=== PATIENT | female | born 1990 | race Caucasian/White ===

== ENCOUNTER 2017-09-17 05:31 | Inpatient (IN) | payer BC ==
[~2017-09-17] VITALS: Ht 170.2 cm; Wt 118.0 kg
[~2017-09-17 05:31] MED LIST: IBUP600 PO; OXYC1SOL5 PO; PERI8.6T PO; PRENCAP6 PO
[2017-09-17 06:12] LABS: AUTOMATED NEUTROPHIL # 8.2 TH/MM3 (1.8-7.7); BASOPHIL % 0.3 % (0.0-2.0); EOSINOPHIL # 0.2 TH/MM3 (0-0.4); EOSINOPHIL % 1.5 % (0.0-4.0); HEMATOCRIT 42.1 % (35.0-46.0); HEMOGLOBIN 14.1 GM/DL (11.6-15.3); LYMPH % 16.8 % (9.0-44.0); LYMPHOCYTE # 1.9 TH/MM3 (1.0-4.8); MEAN CELL VOLUME 90.3 FL (80.0-100.0); MEAN CORPUSCULAR HEMOGLOBIN 30.2 PG (27.0-34.0); MEAN CORPUSCULAR HGB CONC 33.4 % (32.0-36.0); MEAN PLATELET VOLUME 8.9 FL (7.0-11.0); MONO % 7.9 % (0.0-8.0); MONOCYTE # 0.9 TH/MM3 (0-0.9); NEUT % 73.5 % (16.0-70.0); PLATELET COUNT 169 TH/MM3 (150-450); RED BLOOD COUNT 4.67 MIL/MM3 (4.00-5.30); RED CELL DISTRIBUTION WIDTH 13.7 % (11.6-17.2); WHITE BLOOD COUNT 11.2 TH/MM3 (4.0-11.0)
[2017-09-17] MEDS ORDERED: ceFAZolin 2 GM PREMIX 50 ML IV SCH (06:15)
[2017-09-17] MEDS ORDERED: CITRIC ACID-SODIUM CITRATE LIQ 30 ML UDC PO SCH (06:15)
[2017-09-17] MEDS ORDERED: LACTATED RINGER'S 1000 ML IV SCH (06:15)
[2017-09-17] MEDS ORDERED: LACTATED RINGER'S 1000 ML IV ONE (06:15)
[2017-09-17 06:16] LABS: AMORPHOUS SEDIMENT, URINE RARE; BACTERIA, URINE RARE /hpf; BILIRUBIN, URINE NEG (NEG); BLOOD, URINE NEG (NEG); GLUCOSE,URINE NEG (NEG); KETONE, URINE 10 mg/dL (NEG); MUCUS URINE FEW /lpf (OCC); NITRITE,URINE NEG (NEG); PH, URINE 6.5 (5.0-8.5); SQUAMOUS EPITHELIAL CELL URINE 34 /hpf (0-5); URINE COLOR YELLOW (YELLW/STRAW); URINE LEUKOCYTE ESTERASE LARGE (NEG)
[2017-09-17] MEDS ORDERED: METOCLOPRAMIDE HCL 10 MG/2 ML VIAL ONE (07:20)
[2017-09-17] MEDS ORDERED: MORPHINE SULFATE PF 5 MG/10 ML VIAL ONE (07:20)
[2017-09-17] MEDS ORDERED: ACETAMINOPHEN 1000 MG/100 ML 100 ML IV ONE ×2 (07:20→08:30)
--- NOTE | 2017-09-17 07:25 | HHI.HP ---
HPI Chief Complaint scheduled repeat delivery at term Date Seen: September 17, 2017 Time Seen: 07:10 Travel History International Travel<30 Days: No Contact w/Intl Traveler<30Days: No Known Affected Area: No History of Present Illness HPI 27 yo with miranda IUP at 39 wks here for scheduled repeat due to history of , desired elective repeat. No complaint, denies regular contractions, pain minimal pelvic pressure 1/10, no VB, good movement. Declines tubal ligation. Weeks Gestation: 39 Para: 1 : 2 Miscarriage: 0 : 0 History Past Medical History Narrative Medical Rh negative (antibody negative) Obstetric History Obstetric History G1 = FT CD 04/2015 son "Shawanda" G2 = current Past Surgical History Narrative Surgical x 1 Family History Family History: Negative Social History Alcohol Use: No Tobacco Use: No Substance Abuse: No Allergies-Medications (Allergen,Severity, Reaction): Coded Allergies: No Known Allergies (Unverified , 10/24/15) Home Meds Reported Medications Mv & Min W/Fe Fumarat ( 1) 30 Mg-975 Mcg-200 Mg Cap, 1 CAP PO DAILY, CAP 10/24/15 Discontinued Scripts Sennosides-Docusate Sodium (Shonna-Colace 8.6-50 mg) 1 Tab Tab, 1 TAB PO BID for Constipation, #28 TAB 1 Refill Prov:Susan Baird MD 10/26/15 Oxycodone W/ Acetaminophen (Oxycodone/Acetaminophen 5-325 mg/5Ml) 5 mg/325 mg Tab, 1 TAB PO Q6H Y for PAIN, #30 TAB 0 Refills Prov:Susan Baird MD 10/26/15 Ibuprofen (Motrin 600 Mg Tab) 600 Mg Tab, 600 MG PO Q6H Y for CRAMPS, #30 TAB 1 Refill Prov:Susan Baird MD 10/26/15 Review of Systems General / Constitutional: Weight Gain, No: Fever, Chills, Other Eyes: No: Diploplia, Blurred Vision, Visual changes, Pain, Photophobia HENT: No: Headaches, Vertigo, Lightheadedness Cardiovascular: No: Irregular Rhythm, Chest Pain or Discomfort, Palpitations, Tachycardia, Syncope, Varicosities, Edema, Cyanosis Respiratory: No: Cough, Short of Breath, Other Gastrointestinal: No: Nausea, Vomiting, Diarrhea Genitourinary: Pelvic Pain (pressure), No: Decreased Urinary Output, Oliguria Musculoskeletal: No: Limited ROM, Weakness, Cramping, Edema, Pain Skin: No Rash, No Itching, No Dryness, No Lumps, No Change in Pigmentation, No Change in Nails, No Alopecia, No Lesions Neurologic: No: Weakness, Dizziness, Syncope, Focal Abnormalities, Coordination Problem, Headache, Slurred Speech, Seizures Psychiatric: No: Depression, Suicidal Ideations, Homicidal Ideation Endocrine: No: Heat Intolerance, Cold Intolerance, Polydipsia, Polyuria, Other Physical Exam Narrative GENERAL: Well-nourished, well-developed patient. Obese. SKIN: Warm and dry. HEAD: Normocephalic and atraumatic. EYES: No scleral icterus. No injection or drainage. ENT: No nasal drainage noted. Mucous membranes pink. Airway patent. NECK: Supple, trachea midline. No JVD. CARDIOVASCULAR: Regular rate and rhythm without murmurs, gallops, or rubs. RESPIRATORY: Breath sounds equal bilaterally. No accessory muscle use. BREASTS: deferred ABDOMEN/GI: Abdomen soft, non-tender, bowel sounds present, no rebound, no guarding Gravid to [39] weeks size Fundal Height: [39] GENITOURINARY: deferred FHT's: Category:I EXTREMITIES: No cyanosis or edema. BACK: Nontender without obvious deformity. No CVA tenderness. NEUROLOGICAL: Awake and alert. Motor and sensory grossly within normal limits. Five out of 5 muscle strength in all muscle groups. Normal speech. Caprini VTE Risk Assessment Caprini VTE Risk Assessment: No/Low Risk (score <= 1) VTE Pharm Contraindication: Epidural catheter Caprini Risk Assessment Model Point Value = 1 Point Value = 2 Point Value = 3 Point Value = 5 Age 41-60 Minor surgery BMI > 25 kg/m2 Swollen legs Varicose veins or History of unexplained or recurrent spontaneous Oral contraceptives or hormone replacement Sepsis (< 1 month) Serious lung disease, including pneumonia (< 1 month) Abnormal pulmonary function Acute myocardial infarction Congestive heart failure (< 1 month) History of inflammatory bowel disease Medical patient at bed rest Age 61-74 Arthroscopic surgery Major open surgery (> 45 min) Laparoscopic surgery (> 45 min) Malignancy Confined to bed (> 72 hours) Immobilizing plaster cast Central venous access Age >= 75 History of VTE Family history of VTE Factor V Leiden Prothrombin [id number] Lupus anticoagulant Anticardiolipin antibodies Elevated serum homocysteine Heparin-induced thrombocytopenia Other congenital or acquired thrombophilia Stroke (< 1 month) Elective arthroplasty Hip, pelvis, or leg fracture Acute spinal cord injury (< 1 month) Prophylaxis Regimen Total Risk Factor Score Risk Level Prophylaxis Regimen 0-1 Low Early ambulation 2 Moderate Order ONE of the following: *Sequential Compression Device (SCD) *Heparin 5000 units SQ BID 3-4 Higher Order ONE of the following medications: *Heparin 5000 units SQ TID *Enoxaparin/Lovenox 40 mg SQ daily (WT < 150 kg, CrCl > 30 mL/min) *Enoxaparin/Lovenox 30 mg SQ daily (WT < 150 kg, CrCl > 10-29 mL/min) *Enoxaparin/Lovenox 30 mg SQ BID (WT < 150 kg, CrCl > 30 mL/min) AND/OR *Sequential Compression Device (SCD) 5 or more Highest Order ONE of the following medications: *Heparin 5000 units SQ TID (Preferred with Epidurals) *Enoxaparin/Lovenox 40 mg SQ daily (WT < 150 kg, CrCl > 30 mL/min) *Enoxaparin/Lovenox 30 mg SQ daily (WT < 150 kg, CrCl > 10-29 mL/min) *Enoxaparin/Lovenox 30 mg SQ BID (WT < 150 kg, CrCl > 30 mL/min) AND *Sequential Compression Device (SCD) Data Data Vital Signs Reviewed: Yes Orders Orders Admit To Inpatient (09/17/17 ) Vital Signs (Adult) .ON ADMISSION (09/17/17 05:53) Activity Oob Ad Sneha (09/17/17 05:53) Heart (09/17/17 05:53) Urinary Catheter Management JUS.Q8H (09/17/17 05:53) ^ Preps (09/17/17 05:53) Scd / Андрей / Foot Pump JUS.QSHIFT (09/17/17 05:53) ^ Ultrasound For Locatio (09/17/17 05:53) Diet Npo (09/17/17 Breakfast) Type And Screen (09/17/17 05:53) Complete Blood Count With Diff (09/17/17 05:53) Urinalysis - C+S If Indicated (09/17/17 05:53) Drug Screen, Random Urine (09/17/17 05:53) Specimen To Be Collected PRN (09/17/17 05:53) Specimen To Be Collected PRN (09/17/17 05:53) Lactated Ringer's 1000 Ml Inj (Lr 1000 M (09/17/17 06:15) Lactated Ringer's 1000 Ml Inj (Lr 1000 M (09/17/17 06:15) Citric Acid-Sodium Citrate Liq (Bicitra (09/17/17 06:15) Cefazolin 2 Gm Premix (Ancef 2 Gm Premix (09/17/17 06:15) Urine Culture (09/17/17 05:45) Morphine Pf Inj (Duramorph Pf 0.5 Mg/Ml (09/17/17 07:20) Metoclopramide Inj (Reglan Inj) (09/17/17 07:20) Group B Strep: Negative Labs Laboratory Tests Test 09/17/17 05:45 09/17/17 06:00 Urine Color YELLOW Urine Turbidity HAZY Urine pH 6.5 Urine Specific [place] 1.020 Urine Protein TRACE Urine Glucose (UA) NEG Urine Ketones 10 Urine Occult Blood NEG Urine Nitrite NEG Urine Bilirubin NEG Urine Urobilinogen LESS THAN 2.0 Urine Leukocyte Esterase LARGE Urine RBC 1 Urine WBC 12 Urine Squamous Epithelial Cells 34 Urine Amorphous Sediment RARE Urine Bacteria RARE Urine Mucus FEW Microscopic Urinalysis Comment CULTURE INDICATED Urine Opiates Screen NEG Urine Barbiturates Screen NEG Urine Amphetamines Screen NEG Urine Benzodiazepines Screen NEG Urine Cocaine Screen NEG Urine Cannabinoids Screen NEG White Blood Count 11.2 Red Blood Count 4.67 Hemoglobin 14.1 Hematocrit 42.1 Mean Corpuscular Volume 90.3 Mean Corpuscular Hemoglobin 30.2 Mean Corpuscular Hemoglobin Concent 33.4 Red Cell Distribution Width 13.7 Platelet Count 169 Mean Platelet Volume 8.9 Neutrophils (%) (Auto) 73.5 Lymphocytes (%) (Auto) 16.8 Monocytes (%) (Auto) 7.9 Eosinophils (%) (Auto) 1.5 Basophils (%) (Auto) 0.3 Neutrophils # (Auto) 8.2 Lymphocytes # (Auto) 1.9 Monocytes # (Auto) 0.9 Eosinophils # (Auto) 0.2 Basophils # (Auto) 0.0 CBC Comment DIFF FINAL Differential Comment Date/Time Source Procedure Growth Status 09/17/17 05:45 Urine Clean Catch Urine Culture Pending Received Assessment/Plan Problem List: (1) History of delivery ICD Codes: Z98.891 - History of uterine scar from previous surgery Status: Chronic (2) Term ICD Codes: Z34.80 - Encounter for supervision of other normal , unspecified trimester Status: Acute Assessment and Plan 27 yo with miranda term , h/o CD for elective repeat at term 1) scheduled CD: r/b/a of procedure d/w pt, AQA, consents signed 2) GBS neg 3) Rh neg - s/p Rhogam at 28 wks, for PP eval 4) status: Cat I tracing, EFW 8.5Susan Shine MD September 17, 2017 07:25
--- NOTE | 2017-09-17 08:28 | PD.OB.DELI ---
Procedure Note Section Procedure Pre Op Diagnosis: (1) History of delivery (2) Term Post Op Diagnosis: (1) S/P repeat low transverse (2) History of delivery (3) Term Performed by Susan Baird Procedure: Repeat Low Transverse Sec Indication for delivery: Desired elective repeat Previous condition: None Informed consent obtained: For anesthesia, For procedure Confirmed correct: Patient, Procedure, Site, Time-out taken Anesthesia: Spinal Medication prior to procedure: As documented in eMAR Monitoring during procedure: Blood pressure monitoring, hospital monitor, Pulse oximetry Urinary catheter: Inserted using sterile technique, To dependent drainage, ml urine output (200) Sterile preparation: Duraprep, In usual fashion, With drapes to expose affected area Position: Supine with wedge to right side Operative Features Skin Incision: Pfannenstiel Uterine Incision: Low transverse w/knife / blunt ext Membranes Ruptured: Artificially, Amount of liquid (copious), Appearance of fluid (clear) Presentation: Vertex Delivery date: September 17, 2017 Delivery time: 07:51 Delivery of : Uneventful, Umbilical cord (loose nuchal reduced prior to delivery) : Female ("Nereida") One Minute : 9 Five Minute : 9 Weight: 8#14oz Status of : Viable, Cord blood, Nursery present Placenta delivered: Intact Medications: Antibiotics (ancef 2g IV preop) Estimated blood loss: 700 mL Procedure tolerated: Well Maternal Condition: Stable Condition: Stable Procedure in detail see dictated op note for full details Susan Baird MD September 17, 2017 08:28
[2017-09-17] MEDS ORDERED: oxyCODONE/ACETAMINOPHEN 5 MG/325 MG TAB PO PRN ×2 (08:30)
[2017-09-17] MEDS ORDERED: SIMETHICONE 80 MG CHEWABLE TAB PO PRN (08:30)
[2017-09-17] MEDS ORDERED: KETOROLAC TROMETHAMINE 60 MG/2 ML (IM) VIAL IM PRN (08:30)
[2017-09-17] MEDS ORDERED: OXYTOCIN 30 UNITS-500ML PREMIX 500 ML IV ONE (08:30)
[2017-09-17] MEDS ORDERED: SODIUM CHLORIDE 0.9% FLUSH 10 ML FLUSH IV FLUSH PRN (08:30)
[2017-09-17] MEDS ORDERED: ONDANSETRON ODT 4 MG TAB PO PRN (08:30)
[2017-09-17] MEDS ORDERED: OXYTOCIN 30 UNITS-500ML PREMIX 500 ML ONE (08:50)
[2017-09-17] MEDS ORDERED: SODIUM CHLORIDE 0.9% FLUSH 10 ML FLUSH IV FLUSH SCH (09:00)
--- NOTE | 2017-09-17 09:07 | MP ---
cc: Susan Baird MD DATE OF OPERATION: 09/17/2017 DATE OF PROCEDURE: 09/17/2017 PREOPERATIVE DIAGNOSES: 1. Term . 2. History of delivery, for elective repeat. POSTOPERATIVE DIAGNOSES: 1. Term . 2. History of delivery, for elective repeat. 3. Status post repeat low transverse delivery. INDICATIONS: Gayle Funez is a 27-year-old 2, now para 2-0-0-2, who was seen and evaluated throughout her with only complication of history of delivery for arrest of descent with first child. The patient desired elective repeat at term and as such she was scheduled. PROCEDURE PERFORMED: Repeat low transverse delivery. SURGEON: Susan Baird MD TYPE OF ANESTHESIA: Spinal. ESTIMATED BLOOD LOSS: 700 mL. IV FLUID REPLACEMENT: 2 liters. URINE OUTPUT: 200 mL of clear urine draining in the Sharma bag at the end of the procedure. COMPLICATIONS: None. COUNTS: The sponge, lap, instrument and needle counts are correct x2 at the conclusion of the procedure. PROPHYLAXIS: Ancef 2 grams IV was given preoperatively and SCDs were on and functioning throughout the entire case. SPECIMENS: None. INTRAOPERATIVE FINDINGS: Include a vigorous, viable female weighing 8 pounds, 14 ounces, Apgars of 9 and 9. Copious, clear amniotic fluid. Normal-appearing uterus, bilateral adnexa. Minimal scar tissue from prior . PROCEDURE IN DETAIL: After reviewing the informed consent, the patient was taken to the operating suite, where a timeout was performed to identify the patient, the planned procedure and any known allergies to drugs or drug products. The patient was then placed sitting up on the operating table and spinal anesthesia was administered without difficulty and found to be adequate. The patient was then gently lowered into dorsal supine position with a bump under her right side and abdomen and perineum were prepped and draped in normal sterile fashion. Sharma catheter was placed using sterile technique. Attention was turned abdominally where a Pfannenstiel type skin incision was made in the previous scar line from prior Pfannenstiel . The incision was carried down to the underlying layer of fascia with the Bovie. The fascia was incised in the midline. Incision was extended laterally with sharp dissection using Cook scissors. The fascia was elevated superiorly with Liat clamps and rectus muscles were dissected off sharply with Cook scissors. The Liat's were then moved to the inferior portion of the fascial incision and rectus muscles were dissected off sharply with Cook scissors. Rectus muscles were then in the midline. Peritoneum was identified and entered bluntly with surgeon's index finger. Incision was extended superiorly and inferiorly with good visualization of intraabdominal contents. Using smooth pickups and Metzenbaum scissors, a bladder flap was made. The bladder blade was then placed. Low transverse uterine incision was made with a scalpel, extended bluntly. Copious clear amniotic fluid was encountered. Infant's head was grasped and elevated out through the incision. A loose nuchal cord was encountered. This was reduced. With gentle maneuvering, the rest of the infant's body was readily delivered. Infant was immediately crying and vigorous upon delivery. Delayed cord clamping of 45 seconds was performed. The was then handed over to the awaiting nursery staff. Cord blood sample was taken. Using gentle fundal pressure and cord traction the placenta was delivered spontaneously. The uterus was then exteriorized, cleared of all clots and debris with sterile moist lap sponges. Hysterotomy was repaired in a double layer, first in a running locked layer, then an imbricating layer using #1 chromic. The posterior cul-de-sac was irrigated copiously with warm sterile saline. Uterus was returned to the abdomen. Additional irrigation with suction of the gutters was performed. Excellent hemostasis was noted at the repaired hysterotomy site and a layer of Interceed was placed over this area for adhesion barrier. Peritoneum was then closed in a running layer of 2-0 chromic. Fascia was closed in a running layer with #1 Vicryl. Subcutaneous tissue was irrigated copiously with warm sterile saline, and hemostasis was ensured with the Bovie. A series of interrupted sutures using 2-0 chromic was used to close the subcutaneous space. The skin was then closed in a subcuticular fashion using 3-0 Monocryl. The skin was cleaned and dried. Steri-Strips were placed as well as a standard dressing. Procedure concluded at this point. The patient tolerated the procedure well without complication. DISPOSITION: The patient's estimated length of stay is 2-3 postoperative days. is nursery status. MD KARLOS Toro , 08:32 AM , 09:05 AM [facility]
[2017-09-17] MEDS ORDERED: PHENYLEPH/NS 1000 MCG/10 ML SYR IV ONE (12:00)
[2017-09-17] MEDS ORDERED: DEXAMETHASONE SOD PHOS 4 MG/ML VIAL IV ONE (12:00)
[2017-09-17] MEDS ORDERED: OXYTOCIN 10 UNIT/ML AMP IV ONE (12:00)
[2017-09-17] MEDS ORDERED: LACTATED RINGER'S 1000 ML INJ 1,000 ML IV ONE (12:00)
[2017-09-17] MEDS ORDERED: ONDANSETRON HCL 4 MG/2 ML VIAL IV ONE (12:00)
[2017-09-17] MEDS ORDERED: LACTATED RINGER'S 1000 ML INJ 1,000 ML IV SCH (13:24)
[2017-09-17] MEDS ORDERED: OXYTOCIN 30 UNITS-500ML PREMIX 500 ML IV PRN (13:30)
[2017-09-17] MEDS ORDERED: ZOLPIDEM TARTRATE 5 MG TAB PO PRN (21:00)
[2017-09-17] MEDS: ACETAMINOPHEN 325 MG TAB PO PRN (23:04)
[2017-09-17] MEDS: IBUPROFEN 600 MG TAB PO PRN (23:05)
[2017-09-17] MEDS: DOCUSATE SODIUM 50 MG/SENNA 8.6 MG TAB PO SCH (23:07)
[2017-09-18 06:17] LABS: AUTOMATED NEUTROPHIL # 9.4 TH/MM3 (1.8-7.7); BASOPHIL % 0.2 % (0.0-2.0); EOSINOPHIL # 0.1 TH/MM3 (0-0.4); EOSINOPHIL % 0.9 % (0.0-4.0); HEMATOCRIT 38.2 % (35.0-46.0); HEMOGLOBIN 12.7 GM/DL (11.6-15.3); LYMPHOCYTE # 2.3 TH/MM3 (1.0-4.8); MEAN CELL VOLUME 91.1 FL (80.0-100.0); MEAN CORPUSCULAR HEMOGLOBIN 30.4 PG (27.0-34.0); MEAN CORPUSCULAR HGB CONC 33.3 % (32.0-36.0); MEAN PLATELET VOLUME 8.8 FL (7.0-11.0); MONO % 7.9 % (0.0-8.0); PLATELET COUNT 153 TH/MM3 (150-450); WHITE BLOOD COUNT 12.8 TH/MM3 (4.0-11.0)
[2017-09-18] MEDS: DOCUSATE SODIUM 50 MG/SENNA 8.6 MG TAB PO SCH ×2 (09:04→21:27)
--- NOTE | 2017-09-18 10:43 | HHI.OB ---
Subjective Post Operative Day: 1 Remarks comfortable after repeat section first two years ago. i delivered Gayle 25 years ago no N, V or significant pain Objective Result Diagram: 09/18/17 0608 Objective Remarks GENERAL: Well-nourished, well-developed patient. CARDIOVASCULAR: Regular rate and rhythm without murmurs, gallops, or rubs. RESPIRATORY: Breath sounds equal bilaterally. No accessory muscle use. ABDOMEN/GI: Abdomen soft, non-tender, bowel sounds present. Incision: Clean, dry and intact. Fundus: Firm, non-tender at umbilicus. GENITOURINARY: Light to moderate bleeding. EXTREMITIES: No cyanosis or edema, non-tender, without signs of DVT. Medications and IVs Current Medications Medications (Trade) Dose Ordered Sig/Tucker Route Start Time Stop Time Status Last Admin Oxytocin 500 ml @ 100 mls/hr UNSCH X1 PRN IV 09/17/17 13:30 09/18/17 13:29 09/17/17 13:31 (NS Flush) 2 ml BID IV FLUSH 09/17/17 09:00 (NS Flush) 2 ml UNSCH PRN IV FLUSH 09/17/17 08:30 (Mylicon Chew) 80 mg QID PRN PO 09/17/17 08:30 09/18/17 09:04 (Tylenol) 650 mg Q6H PRN PO 09/17/17 08:30 09/17/17 23:04 (Motrin) 600 mg Q6H PRN PO 09/17/17 08:30 09/17/17 23:05 (Percocet 5-325 Mg) 1 tab Q4H PRN PO 09/17/17 08:30 (Percocet 5-325 Mg) 2 tab Q4H PRN PO 09/17/17 08:30 (Shonna-Colace) 2 tab Q12H PO 09/17/17 21:00 09/18/17 09:04 (Ambien) 5 mg HS PRN PO 09/17/17 21:00 (M-M-R Ii Inj) 0.5 ml ONCE ONCE SQ 09/18/17 16:00 09/18/17 16:01 (Boostrix Inj) 0.5 ml ONCE ONCE IM 09/18/17 16:00 09/18/17 16:01 09/18/17 06:09 (Zofran Odt) 4 mg Q6H PRN PO 09/17/17 08:30 Assessment/Plan Problem List: (1) History of delivery ICD Codes: Z98.891 - History of uterine scar from previous surgery Status: Chronic (2) Term ICD Codes: Z34.80 - Encounter for supervision of other normal , unspecified trimester Status: Acute Assessment and Plan 27 yo with miranda term , h/o CD for elective repeat at term 1) scheduled CD: r/b/a of procedure d/w pt, AQA, consents signed 2) GBS neg 3) Rh neg - s/p Rhogam at 28 wks, for PP eval 4) status: Cat I tracing, EFW 8.5# POD 1 09/18/17 daughter in room and doing well anticipate discharge wednesday or wednesday Maria Alejandra Baires MD September 18, 2017 10:43
[2017-09-18] MEDS: ACETAMINOPHEN 325 MG TAB PO PRN ×2 (13:16→21:27)
[2017-09-18] MEDS: IBUPROFEN 600 MG TAB PO PRN ×2 (13:17→21:27)
[2017-09-18] MEDS ORDERED: MEASLES, MUMPS, RUBELLA VACCINE 0.5 ML VIAL SQ ONE (16:00)
[2017-09-18] MEDS ORDERED: DIPHTH/TETANUS/ACEL PERTUSSIS (BOOSTER) 0.5 ML VIAL/PFS IM ONE (16:00)
[2017-09-18 20:08] VITALS: BP 113/62; PULSE 72; RESP 18; TEMP 97.7; O2SAT 100
[2017-09-19] MEDS: DOCUSATE SODIUM 50 MG/SENNA 8.6 MG TAB PO SCH (08:39)
[2017-09-19] MEDS: ACETAMINOPHEN 325 MG TAB PO PRN (08:39)
[2017-09-19] MEDS: IBUPROFEN 600 MG TAB PO PRN (08:39)
--- NOTE | 2017-09-19 10:27 | HHI.OB ---
Subjective Post Operative Day: 2 Remarks Doing well and would like to be discharged no complaints nursing well Objective Vitals/I&O Vital Signs Date Time Temp Pulse Resp B/P (MAP) Pulse Ox O2 Delivery O2 Flow Rate FiO2 09/18/17 20:08 97.7 72 18 113/62 100 Result Diagram: 09/18/17 0608 Objective Remarks GENERAL: Well-nourished, well-developed patient. CARDIOVASCULAR: Regular rate and rhythm without murmurs, gallops, or rubs. RESPIRATORY: Breath sounds equal bilaterally. No accessory muscle use. ABDOMEN/GI: Abdomen soft, non-tender, bowel sounds present. Incision: Clean, dry and intact. Fundus: Firm, non-tender at umbilicus. GENITOURINARY: Light to moderate bleeding. EXTREMITIES: No cyanosis or edema, non-tender, without signs of DVT. Medications and IVs Current Medications Medications (Trade) Dose Ordered Sig/Tucker Route Start Time Stop Time Status Last Admin (NS Flush) 2 ml BID IV FLUSH 09/17/17 09:00 (NS Flush) 2 ml UNSCH PRN IV FLUSH 09/17/17 08:30 (Mylicon Chew) 80 mg QID PRN PO 09/17/17 08:30 09/18/17 09:04 (Tylenol) 650 mg Q6H PRN PO 09/17/17 08:30 09/19/17 08:39 (Motrin) 600 mg Q6H PRN PO 09/17/17 08:30 09/19/17 08:39 (Percocet 5-325 Mg) 1 tab Q4H PRN PO 09/17/17 08:30 (Percocet 5-325 Mg) 2 tab Q4H PRN PO 09/17/17 08:30 (Shonna-Colace) 2 tab Q12H PO 09/17/17 21:00 09/18/17 21:27 (Ambien) 5 mg HS PRN PO 09/17/17 21:00 (Zofran Odt) 4 mg Q6H PRN PO 09/17/17 08:30 Assessment/Plan Problem List: (1) History of delivery ICD Codes: Z98.891 - History of uterine scar from previous surgery Status: Chronic (2) Term ICD Codes: Z34.80 - Encounter for supervision of other normal , unspecified trimester Status: Acute Assessment and Plan 27 yo with miranda term , h/o CD for elective repeat at term 1) scheduled CD: r/b/a of procedure d/w pt, AQA, consents signed 2) GBS neg 3) Rh neg - s/p Rhogam at 28 wks, for PP eval 4) status: Cat I tracing, EFW 8.5# POD 1 09/18/17 daughter in room and doing well anticipate discharge wednesday or wednesday Discharge Planning dsicharge home today discussed post pre eclampsia, DVT, PPD, mastitis Maria Alejandra Baires MD September 19, 2017 10:27
[2017-09-19] MEDS ORDERED: OXYC1TAB63 PO (10:29)
--- NOTE | 2017-09-19 10:29 | HHI.DCPOC ---
Discharge Care Plan Report Symptoms to Your Doctor -Temperature above 100.5 degrees -Redness, of incision or excessive or foul smelling drainage -Unusual pain or calf pain -Increased vaginal bleeding -Painful or difficulty urinating -Feelings of extreme sadness or anxiety after 2 weeks Goals to Promote Your Health * To prevent worsening of your condition and complications * To maintain your health at the optimal level Directions to Meet Your Goals Take your medications as prescribed Follow your dietary instruction Follow activity as directed Ensure plenty of rest for recovery Drink fluids for hydration Keep your appointments as scheduled Take your immunizations and boosters as scheduled If your symptoms worsen call your PCP, if no PCP go to Urgent Care Center or Emergency Room Smoking is Dangerous to Your Health. Avoid second hand smoke Call the 24-hour crisis hotline for domestic abuse at Maria Alejandra Baires MD September 19, 2017 10:29
== END 2017-09-19 12:14 | disposition home or self-care (01) | DRG 765 ==
LOC: H2EB 05:31 → H1EA 09:36
PROVIDERS: ADMIT Obstetrics & Gynecology; ATTEND Obstetrics & Gynecology
PROC: 10D00Z1 Extraction of Products of Conception, Low, Open Approach (ICD-10-PCS; principal; 2017-09-17)
PROC: 3E0R3BZ Introduction of Anesthetic Agent into Spinal Canal, Percutaneous Approach (ICD-10-PCS; 2017-09-17)
DX: O34.219 Maternal care for unspecified type scar from previous cesarean delivery (principal); O36.0130 Maternal care for anti-D [Rh] antibodies, third trimester, not applicable or unspecified; N85.8 Other specified noninflammatory disorders of uterus; Z37.0 Single live birth; Z3A.39 39 weeks gestation of pregnancy
CPT/HCPCS: 59025; 80307; 81001; 85025; 85461; 86850; 86900; 86901; 87086; 90384; 90715; C1765; J0131; J0690; J1100; J2274; J2370; J2405; J2590; J2765; J2790; J7120